=== PATIENT | male | born 1945 | race Caucasian/White ===

== ENCOUNTER 2016-11-28 07:12 | Outpatient (CLI) | payer MEDICARE, OTHER | END 2016-11-28 07:13 | disposition home or self-care (01) | DX: I10 Essential (primary) hypertension (principal); M10.9 Gout, unspecified ==

== ENCOUNTER 2018-01-08 14:19 | Outpatient (CLI) | payer MEDICARE, OTHER | END 2018-01-08 14:20 | disposition home or self-care (01) | LOC: LAB.WCP 14:19 | PROVIDERS: ATTEND Family Medicine | DX: L97.519 Non-pressure chronic ulcer of other part of right foot with unspecified severity (principal) | CPT/HCPCS: 87070; 87205 ==

== ENCOUNTER 2019-03-02 08:00 | Outpatient (CLI) | payer MEDICARE, OTHER ==
[2019-03-02 12:43] LABS: BASOPHILS % (AUTO) 0.6 %; EOSINOPHILS # (AUTO) 0.2 10^3/uL (0.0-0.7); EOSINOPHILS % (AUTO) 3.9 %; HGB - HEMOGLOBIN 15.8 g/dL (14.0-18.0); LYMPHOCYTES # (AUTO) 1.2 10^3/uL (1.5-3.5); LYMPHOCYTES % (AUTO) 26.6 %; MEAN CORPUSCULAR HEMOGLOBIN 32.3 pg (27.0-31.0); MEAN CORPUSCULAR HGB CONC 33.9 g/dL (32.0-36.0); MEAN CORPUSCULAR VOLUME 95.2 fL (80.0-94.0); MEAN PLATELET VOLUME 9.5 fL (7.4-11.4); MONOCYTES # (AUTO) 0.4 10^3/uL (0.0-1.0); MONOCYTES % (AUTO) 8.4 %; NEUTROPHILS # (AUTO) 2.8 10^3/uL (1.5-6.6); NEUTROPHILS % (AUTO) 60.5 %; PLT - PLATELET COUNT 162 10^3/uL (130-450); RED CELL DISTRIBUTION WIDTH 13.7 % (12.0-15.0); WHITE BLOOD COUNT 4.6 x10^3/uL (4.8-10.8)
[2019-03-02 12:56] LABS: HEMOGLOBIN A1C 0.61 g/dL; HEMOGLOBIN A1C % 5.3 % (4.6-6.2)
[2019-03-02 13:00] LABS: ALBUMIN 4.4 g/dL (3.2-5.5); ALBUMIN/GLOBULIN RATIO 1.3 (1.0-2.2); ALKALINE PHOSPHATASE 66 IU/L (42-121); ALT ALANINE AMINOTRANSFERASE 51 IU/L (10-60); AST ASPARTATE AMINOTRANSFERASE 37 IU/L (10-42); BILIRUBIN,TOTAL 0.8 mg/dL (0.2-1.0); BUN - BLOOD UREA NITROGEN 25 mg/dL (6-20); CALCIUM 9.1 mg/dL (8.5-10.3); CARBON DIOXIDE - CO2 24 mmol/L (21-32); CHLORIDE 106 mmol/L (101-111); CHOL/HDL RATIO 4.5 (<5.0); CHOLESTEROL 161 mg/dL; CREATININE 1.3 mg/dL (0.6-1.2); GFR - MDRD 54 (>89); GLUCOSE 114 mg/dL (70-100); HDL CHOLESTEROL 36 mg/dL; LDL CHOLESTEROL,CALCULATED 88 mg/dL; LDL/HDL RATIO 2.4 (<3.6); SODIUM 138 mmol/L (135-145); TOTAL PROTEIN 7.7 g/dL (6.7-8.2); URIC ACID 6.9 mg/dL (2.6-7.2); VLDL CHOLESTEROL 37 mg/dL
[2019-03-03 12:57] LABS: HEPATITIS C ANTIBODY NON-REACTIVE (NON-REACTIVE)
== END 2019-03-02 23:59 | disposition home or self-care (01) ==
LOC: LAB.WCP 08:00
PROVIDERS: ATTEND Family Medicine
DX: N28.9 Disorder of kidney and ureter, unspecified (principal); E78.5 Hyperlipidemia, unspecified; R73.01 Impaired fasting glucose; M10.9 Gout, unspecified; Z11.59 Encounter for screening for other viral diseases
CPT/HCPCS: 36415; 80053; 80061; 83036; 83721; 84550; 85025; 86803

== ENCOUNTER 2020-12-19 08:00 | Outpatient (CLI) | payer MEDICARE, OTHER ==
[2020-12-19 18:13] LABS: BASOPHILS # (AUTO) 0.1 10^3/uL (0.0-0.1); BASOPHILS % (AUTO) 0.9 %; EOSINOPHILS # (AUTO) 0.3 10^3/uL (0.0-0.7); EOSINOPHILS % (AUTO) 4.3 %; HCT - HEMATOCRIT 47.7 % (42.0-52.0); HGB - HEMOGLOBIN 16.5 g/dL (14.0-18.0); LYMPHOCYTES # (AUTO) 1.8 10^3/uL (1.5-3.5); LYMPHOCYTES % (AUTO) 31.7 %; MEAN CORPUSCULAR HEMOGLOBIN 33.3 pg (27.0-31.0); MEAN CORPUSCULAR HGB CONC 34.6 g/dL (32.0-36.0); MEAN CORPUSCULAR VOLUME 96.2 fL (80.0-94.0); MEAN PLATELET VOLUME 11.1 fL (7.4-11.4); MONOCYTES # (AUTO) 0.4 10^3/uL (0.0-1.0); MONOCYTES % (AUTO) 6.8 %; NEUTROPHILS # (AUTO) 3.2 10^3/uL (1.5-6.6); PLT - PLATELET COUNT 180 10^3/uL (130-450); RED BLOOD COUNT 4.96 10^6/uL (4.70-6.10); RED CELL DISTRIBUTION WIDTH 13.3 % (12.0-15.0); WHITE BLOOD COUNT 5.8 x10^3/uL (4.8-10.8)
[2020-12-19 18:42] LABS: ALBUMIN 4.8 g/dL (3.2-5.5); ALBUMIN/GLOBULIN RATIO 1.3 (1.0-2.2); ALKALINE PHOSPHATASE 58 IU/L (42-121); ALT ALANINE AMINOTRANSFERASE 58 IU/L (10-60); AST ASPARTATE AMINOTRANSFERASE 36 IU/L (10-42); BUN - BLOOD UREA NITROGEN 23 mg/dL (6-20); CALCIUM 9.6 mg/dL (8.5-10.3); CARBON DIOXIDE - CO2 25 mmol/L (21-32); CHLORIDE 104 mmol/L (101-111); CHOL/HDL RATIO 4.7 (<5.0); CHOLESTEROL 191 mg/dL; CREATININE 1.4 mg/dL (0.6-1.2); GFR - MDRD 50 (>89); GLUCOSE 99 mg/dL (70-100); HDL CHOLESTEROL 41 mg/dL; LDL CHOLESTEROL,CALCULATED 110 mg/dL; LDL/HDL RATIO 2.7 (<3.6); POTASSIUM 4.5 mmol/L (3.5-5.0); SODIUM 137 mmol/L (135-145); TOTAL PROTEIN 8.4 g/dL (6.7-8.2); TRIGLYCERIDES 200 mg/dL; URIC ACID 7.8 mg/dL (2.6-7.2); VLDL CHOLESTEROL 40 mg/dL
== END 2020-12-19 23:59 | disposition home or self-care (01) ==
LOC: LAB.WCP 08:00
PROVIDERS: ATTEND Family Medicine
DX: I10 Essential (primary) hypertension (principal); E78.5 Hyperlipidemia, unspecified; Z12.5 Encounter for screening for malignant neoplasm of prostate; M10.9 Gout, unspecified
CPT/HCPCS: 36415; 80053; 80061; 83721; 84153; 84550; 85025

== ENCOUNTER 2023-08-30 09:11 | Outpatient (CLI) | payer MEDICARE, OTHER ==
[2023-08-30 09:22] LABS: EOSINOPHILS # (AUTO) 0.2 10^3/uL (0.0-0.7); EOSINOPHILS % (AUTO) 5.7 %; HCT - HEMATOCRIT 48.2 % (42.0-52.0); HGB - HEMOGLOBIN 16.9 g/dL (14.0-18.0); LYMPHOCYTES # (AUTO) 1.1 10^3/uL (1.5-3.5); LYMPHOCYTES % (AUTO) 27.4 %; MEAN CORPUSCULAR HEMOGLOBIN 32.3 pg (27.0-31.0); MEAN CORPUSCULAR HGB CONC 35.1 g/dL (32.0-36.0); MEAN CORPUSCULAR VOLUME 92.2 fL (80.0-94.0); MEAN PLATELET VOLUME 10.5 fL (7.4-11.4); MONOCYTES # (AUTO) 0.5 10^3/uL (0.0-1.0); MONOCYTES % (AUTO) 13.4 %; NEUTROPHILS % (AUTO) 52.2 %; PLT - PLATELET COUNT 155 10^3/uL (130-450); RED BLOOD COUNT 5.23 10^6/uL (4.70-6.10); RED CELL DISTRIBUTION WIDTH 13.2 % (12.0-15.0); WHITE BLOOD COUNT 3.9 x10^3/uL (4.8-10.8)
[2023-08-30 09:44] LABS: ALBUMIN 4.6 g/dL (3.2-5.5); ALBUMIN/GLOBULIN RATIO 1.4 (1.0-2.2); ALKALINE PHOSPHATASE 70 IU/L (42-121); ALT ALANINE AMINOTRANSFERASE 52 IU/L (10-60); AST ASPARTATE AMINOTRANSFERASE 39 IU/L (10-42); BILIRUBIN,TOTAL 0.9 mg/dL (0.2-1.0); BUN - BLOOD UREA NITROGEN 15 mg/dL (6-20); CALCIUM 10.1 mg/dL (8.5-10.3); CARBON DIOXIDE - CO2 28 mmol/L (21-32); CHLORIDE 104 mmol/L (101-111); CHOL/HDL RATIO 4.7 (<5.0); CHOLESTEROL 166 mg/dL; CREATININE 1.6 mg/dL (0.6-1.3); GFR - MDRD 42 (>89); GLUCOSE 137 mg/dL (74-104); HDL CHOLESTEROL 35 mg/dL; LDL CHOLESTEROL,CALCULATED 100 mg/dL; LDL/HDL RATIO 2.9 (<3.6); POTASSIUM 4.5 mmol/L (3.5-4.5); SODIUM 139 mmol/L (135-145); TOTAL PROTEIN 7.9 g/dL (6.4-8.9); TRIGLYCERIDES 154 mg/dL (48-352); VLDL CHOLESTEROL 31 mg/dL
== END 2023-08-30 09:12 | disposition home or self-care (01) ==
LOC: LAB 09:11
PROVIDERS: ATTEND Physician Assistant
DX: I10 Essential (primary) hypertension (principal); E78.5 Hyperlipidemia, unspecified; Z12.5 Encounter for screening for malignant neoplasm of prostate
CPT/HCPCS: 36415; 80053; 80061; 85025; G0103; 83721; 84153

== ENCOUNTER 2023-09-13 07:26 | Outpatient (CLI) | payer MEDICARE, OTHER ==
[2023-09-13 08:22] LABS: CALCIUM 9.9 mg/dL (8.5-10.3); CREATININE 1.5 mg/dL (0.6-1.3); POTASSIUM 4.9 mmol/L (3.5-4.5)
[2023-09-13 11:04] LABS: ESTIMATED AVERAGE GLUCOSE 105 mg/dL (70-100); HEMOGLOBIN A1c% 5.3 % (4.27-6.07)
== END 2023-09-13 07:27 | disposition home or self-care (01) ==
LOC: LAB 07:26
PROVIDERS: ATTEND Physician Assistant
DX: R73.01 Impaired fasting glucose (principal)
CPT/HCPCS: 36415; 80048; 83036

== ENCOUNTER 2023-12-12 07:34 | Outpatient (CLI) | payer MEDICARE, OTHER ==
[2023-12-12 07:58] LABS: CREATININE,URINE 141.5 mg/dL; MICROALBUM/CREATININE RATIO,UR 10.6 ug/mg (<30.0); MICROALBUMIN,URINE 1.5 mg/dL
[2023-12-12 07:59] LABS: BUN - BLOOD UREA NITROGEN 26 mg/dL (6-20); CALCIUM 9.7 mg/dL (8.5-10.3); CARBON DIOXIDE - CO2 26 mmol/L (21-32); CHLORIDE 106 mmol/L (101-111); CHOL/HDL RATIO 4.2 (<5.0); CHOLESTEROL 158 mg/dL; CREATININE 1.4 mg/dL (0.6-1.3); GFR - MDRD 49 (>89); GLUCOSE 118 mg/dL (74-104); HDL CHOLESTEROL 38 mg/dL; LDL CHOLESTEROL,CALCULATED 95 mg/dL; LDL/HDL RATIO 2.5 (<3.6); POTASSIUM 4.4 mmol/L (3.5-4.5); SODIUM 138 mmol/L (135-145); TRIGLYCERIDES 125 mg/dL (48-352); VLDL CHOLESTEROL 25 mg/dL
[2023-12-12 12:00] LABS: ESTIMATED AVERAGE GLUCOSE 105 mg/dL (70-100); HEMOGLOBIN A1c% 5.3 % (4.27-6.07)
== END 2023-12-12 07:35 | disposition home or self-care (01) ==
LOC: LAB 07:34
PROVIDERS: ATTEND Physician Assistant
DX: E11.9 Type 2 diabetes mellitus without complications (principal); E78.5 Hyperlipidemia, unspecified
CPT/HCPCS: 36415; 80048; 80061; 82043; 82570; 83036; 83721

== ENCOUNTER 2024-06-09 06:37 | Outpatient (CLI) | payer MEDICARE, OTHER ==
[2024-06-09 07:17] LABS: CALCIUM 9.8 mg/dL (8.5-10.3); CREATININE 1.4 mg/dL (0.6-1.3); POTASSIUM 4.8 mmol/L (3.5-4.5)
[2024-06-09 12:54] LABS: ESTIMATED AVERAGE GLUCOSE 100 mg/dL (70-100); HEMOGLOBIN A1c% 5.1 % (4.27-6.07)
== END 2024-06-09 06:38 | disposition home or self-care (01) ==
LOC: LAB 06:37
PROVIDERS: ATTEND Physician Assistant
DX: E11.9 Type 2 diabetes mellitus without complications (principal)
CPT/HCPCS: 36415; 80048; 83036

== ENCOUNTER 2024-07-24 09:01 | Day surgery (SDC) | payer MEDICARE, OTHER ==
[2024-07-24] MEDS: LACTATED RINGERS 1,000 ML IV ONE ×2 (09:11→12:25)
--- NOTE | 2024-07-24 10:16 | ANESTHESIA ---
Pre-Anesthesia VS, & Labs - Diagnosis screening - Procedure colonoscopy Vital Signs: Temp Pulse Resp BP Pulse Ox O2 Flow Rate 36.8 C 58 L 15 145/72 H 99 07/24/24 09:15 07/24/24 09:15 07/24/24 09:15 07/24/24 09:15 07/24/24 09:15 Height: 6 ft Weight (kg): 105.9 kg Body Mass Index: 31.6 BMI Classification: Obese - NPO >8 hours Home Medications and Allergies Home Medications: Ambulatory Orders Tamsulosin [Flomax] 1 cap PO DAILY 07/24/24 allopurinoL [Zyloprim] 100 mg PO DAILY 07/24/24 amLODIPine [Norvasc] 10 mg PO DAILY 07/24/24 atenoloL [Tenormin] 100 mg PO DAILY 07/24/24 Tamsulosin [Flomax] 1 cap PO DAILY 07/24/24 allopurinoL [Zyloprim] 100 mg PO DAILY 07/24/24 amLODIPine [Norvasc] 10 mg PO DAILY 07/24/24 atenoloL [Tenormin] 100 mg PO DAILY 07/24/24 Allergies/Adverse Reactions: Allergies Allergy/AdvReac Type Severity Reaction Status Date / Time No Known Drug Allergies Allergy Verified 07/23/24 13:29 Anes History & Medical History - Anesthetic History Anesthesia Complications: reports: No previous complications Family history of Anesthesia Complications: Denies Family history of Malignant Hyperthermia: Denies - Medical History Cardiovascular: reports: Hypertension Pulmonary: reports: None Gastrointestinal: reports: None Urinary: reports: Benign prostate hypertrophy Musculoskeletal: reports: None Endocrine/Autoimmune: reports: None Skin: reports: None - Surgical History General: reports: Cholecystectomy Urologic: reports: Nephrectomy Exam General: Alert, Oriented x3, Cooperative Dental: WNL Mouth Openin Fingerbreadth Neck Mobility: Normal Mallampati classification: I Thyromental Distance: 4-6 cm Respiratory: Lungs clear Cardiovascular: Regular rate Plan Anesthesia Type: General, Total IV Consent for Procedure(s) Verified and Reviewed: Yes Code Status: Attempt Resuscitation ASA classification: 2-Mild systemic disease Is this case an emergency?: No
[2024-07-24] MEDS ORDERED: PROPOFOL 500 MG/50 ML 500 MG/50 ML VIAL ONE (11:35)
[2024-07-24] MEDS ORDERED: ePHEDrine 50 MG/ML VIAL IVP ONE (11:48)
[2024-07-24] MEDS ORDERED: PROPOFOL 200 MG/20 ML VIAL IVP ONE (12:07)
[2024-07-24 12:34] VITALS: O2SAT 95
[2024-07-24 12:44] VITALS: BP 122/69
--- NOTE | 2024-07-24 19:12 | ANESTHESIA POST OP EVALUATION ---
Anesthesia Post Eval - Post Anesthesia Eval Vitals: Last Vital Signs Temp 36.1 C L 07/24/24 12:36 Pulse 64 07/24/24 12:36 Resp 16 07/24/24 12:36 BP 122/69 07/24/24 12:36 Pulse Ox 95 07/24/24 12:36 O2 Flow Rate CV Function Including HR & BP: Stable Pain Control: Satisfactory Nausea & Vomiting: Negative Mental Status: Baseline Respiratory Status: Airway Patent Hydration Status: Satisfactory Anesthesia Complications: None
== END 2024-07-24 09:02 | disposition home or self-care (01) ==
LOC: SDS 09:01
PROVIDERS: ATTEND Surgery
PROC: 0DBK8ZZ Excision of Ascending Colon, Via Natural or Artificial Opening Endoscopic (ICD-10-PCS; principal; 2024-07-24 10:45)
DX: Z12.11 Encounter for screening for malignant neoplasm of colon (principal); D12.2 Benign neoplasm of ascending colon; N40.0 Benign prostatic hyperplasia without lower urinary tract symptoms; E11.9 Type 2 diabetes mellitus without complications; E66.9 Obesity, unspecified; I10 Essential (primary) hypertension; Z68.31 Body mass index [BMI] 31.0-31.9, adult
CPT/HCPCS: 45380; J7120